=== PATIENT | female | born 1980 | race African-American/Black ===

== ENCOUNTER 2018-01-14 07:45 | Emergency (ER) | payer SELFPAY ==
[~2018-01-14] VITALS: Ht 160 cm; Wt 78.0 kg
--- NOTE | 2018-01-14 08:09 | PHYS DOC ---
Adult General Chief Complaint Chief Complaint: PAIN ON URINATION HPI HPI Patient is a 37 year old female who presents with complaint of dysuria. Patient states her symptoms started approximately 3 days ago. The patient states she started having mild abdominal discomfort and started noticing burning while urinating. Patient states since then she has been taking Azo for her symptoms but states that due to continued discomfort with urination she came to the emergency department as she is concerned she may have urinary tract infection. Patient denies any associated vomiting, flank pain, or fever. Patient states that her abdominal discomfort has resolved. Patient does admit to increased urinary frequency. Review of Systems Review of Systems Constitutional: Denies fever or chills [] Eyes: Denies change in visual acuity, redness, or eye pain [] HENT: Denies nasal congestion or sore throat [] Respiratory: Denies cough or shortness of breath [] Cardiovascular: Denies chest pain or edema[] GI: Abdominal pain currently resolved, denies nausea, vomiting, bloody stools or diarrhea [] : Dysuria, denies vaginal bleeding or abnormal discharge[] Musculoskeletal: Denies back pain or joint pain [] Integument: Denies rash or skin lesions [] Neurologic: Denies headache, focal weakness or sensory changes [] All other systems were reviewed and found to be within normal limits, except as documented in this note. Allergies Allergies No known drug allergies Physical Exam Physical Exam Constitutional: Alert, afebrile, no acute distress. [] HENT: Normocephalic, atraumatic, bilateral external ears normal, oropharynx moist, no oral exudates, nose normal. [] Eyes: PERRLA, EOMI, conjunctiva normal, no discharge. [] Neck: Normal range of motion, no tenderness, supple, no stridor. [] Cardiovascular:Heart rate regular rhythm, no murmur [] Lungs & Thorax: Bilateral breath sounds clear to auscultation [] Abdomen: Bowel sounds normal, soft, no tenderness, no masses, no pulsatile masses. [] Skin: Warm, dry, no erythema, no rash. [] Back: No tenderness, no CVA tenderness. [] Extremities: No tenderness, no cyanosis, no clubbing, ROM intact, no edema. [] Neurologic: Alert and oriented X 3, normal motor function, normal sensory function, no focal deficits noted. [] Current Patient Data Vital Signs Vital Signs Date Time Temp Pulse Resp B/P (MAP) Pulse Ox O2 Delivery O2 Flow Rate FiO2 01/14/18 07:50 98.5 62 18 98 Room Air Lab Results Laboratory Tests Test 01/14/18 08:00 Urine Collection Type Unknown Urine Color Yellow Urine Clarity Turbid Urine pH 6.0 Urine Specific [place] 1.015 Urine Protein 100 mg/dl Urine Glucose (UA) Neg mg/dL Urine Ketones (Stick) Neg mg/dL Urine Blood Mod Urine Nitrite Pos Urine Bilirubin Neg Urine Urobilinogen Dipstick 1 mg/dL Urine Leukocyte Esterase Large Urine RBC 3-5 /HPF Urine WBC >40 /HPF Urine Squamous Epithelial Cells Occ /LPF Urine Bacteria Many /HPF EKG EKG Not performed[] Radiology/Procedures Radiology/Procedures Not performed[] Course & Med Decision Making Course & Med Decision Making Pertinent Labs and Imaging studies reviewed. (See chart for details) The patient's urinalysis was positive for urinary tract infection. Patient started on oral Keflex area patient will continue on seven-day course of treatment. Advised follow-up in 4-5 days with primary doctor for reevaluation if symptoms are not improving and return to emergency department for any worsening symptoms. Patient was understanding and in agreement with treatment plan. Dragon Disclaimer Dragon Disclaimer This electronic medical record was generated, in whole or in part, using a voice recognition dictation system. Departure Departure: Impression: Primary Impression: Urinary tract infection Disposition: 01 HOME, SELF-CARE Condition: IMPROVED Referrals: PCP,NO (PCP) Patient Instructions: Urinary Tract Infection Additional Instructions: Follow-up with your primary doctor in 4-5 days if symptoms are not improving. Return to the emergency department for any worsening symptoms. Scripts Cephalexin (KEFLEX) 500 Mg Capsule 1 CAP PO BID, #14 CAP Prov: LUZ MARINA DURAN MD 01/14/18 Problem Qualifiers Primary Impression: Urinary tract infection Urinary tract infection type: site unspecified Hematuria presence: without hematuria Qualified Codes: N39.0 - Urinary tract infection, site not specified LUZ MARINA DURAN MD Jan 14, 2018 08:09
[2018-01-14 08:39] LABS: CLARITY,URINE TURBID; COLOR,URINE YELLOW
[2018-01-14 08:40] LABS: BACTERIA,URINE MANY /HPF (0-FEW); BILIRUBIN,URINE NEG (NEG); GLUCOSE,URINE NEG (NEG); NITRITE,URINE POS (NEG); SQUAMOUS EPITHELIAL CELL,UR OCC /LPF; UROBILINOGEN,URINE 1 mg/dL (0.2 mg/dL); WBC,URINE >40 /HPF (0-4)
[2018-01-14] MEDS ORDERED: CEPH-264 PO (08:45)
[2018-01-14] MEDS ORDERED: CEPHALEXIN 250 MG CAPSULE PO ONE (09:00)
[2018-01-14 09:12] VITALS: BP 133/90
== END 2018-01-14 09:15 | disposition home or self-care (01) ==
LOC: ER 07:45
DX: N39.0 Urinary tract infection, site not specified (principal)
CPT/HCPCS: 81001; 87086; 87186; 99284

== ENCOUNTER 2019-04-07 18:22 | Observation (INO) | payer OTHER ==
[~2019-04-07] VITALS: Ht 162.6 cm; Wt 85.7 kg
[~2019-04-07 18:22] MED LIST: CEPH-264 PO
[2019-04-07] MEDS ORDERED: ZOLPIDEM 5 MG TABLET. PO PRN (18:45)
[2019-04-07] MEDS ORDERED: ACETAMINOPHEN 500 MG TABLET PO PRN ×2 (18:45)
[2019-04-07] MEDS ORDERED: MORPHINE SULFATE 2 MG/ML DISP.SYRIN. IV PRN (18:45)
[2019-04-07 19:29] LABS: HEMOGLOBIN 8.6 g/dL (12.0-15.5); MEAN CORPUSCULAR HEMOGLOBIN 24 pg (25-35); MEAN CORPUSCULAR HGB CONC 33 g/dL (31-37); MEAN CORPUSCULAR VOLUME 71 fL (79-100); PLATELET COUNT 395 x10^3/uL (140-400); RED BLOOD COUNT 3.64 x10^6/uL (3.50-5.40); RED CELL DISTRIBUTION WIDTH 22.4 % (11.5-14.5); WHITE BLOOD COUNT 15.3 x10^3/uL (4.0-11.0)
[2019-04-07 19:53] LABS: % BANDS 1 % (0-9); % EOS 8 % (0-5); % LYMPHS 44 % (24-48); % MONOS 2 % (0-10); % SEGS 45 % (35-66); HYPOCHROMIA SLIGHT; NUCLEATED RBC 1; PLT ESTIMATE ADEQUATE (ADEQUATE); POLYCHROMASIA SLIGHT
[2019-04-07 19:54] LABS: ANISOCYTOSIS MOD; MICROCYTOSIS MOD; TARGET CELLS MOD
[2019-04-07 20:00] VITALS: BP 123/66
[2019-04-07 20:01] LABS: ALBUMIN 3.3 g/dL (3.4-5.0); ALBUMIN/GLOBULIN RATIO 0.8 (1.0-1.7); CALCIUM 8.6 mg/dL (8.5-10.1); CREATININE 0.8 mg/dL (0.6-1.0); GFR 97.7; POTASSIUM 3.8 mmol/L (3.5-5.1); TOTAL BILIRUBIN 1.2 mg/dL (0.2-1.0); TOTAL PROTEIN 7.5 g/dL (6.4-8.2)
[2019-04-07] MEDS: IV NORMAL SALINE 1,000ML 1,000 ML IV SCH (20:46)
[2019-04-07] MEDS: LACTOBACILLUS RHAMNOSUS GG 1 CAPSULE. PO SCH (21:16)
[2019-04-07] MEDS: ACETAMINOPHEN/CODEINE 300/30MG TABLET PO PRN (22:02)
[2019-04-08 00:20] VITALS: BP 116/76
[2019-04-08] MEDS ORDERED: MECL25TA3 PO ×2 (00:54→01:01)
[2019-04-08] MEDS ORDERED: AMIT25TA PO (00:58)
[2019-04-08] MEDS ORDERED: IBUP800T19 PO (01:04)
[2019-04-08] MEDS ORDERED: TRAM50TA PO (01:04)
[2019-04-08] MEDS ORDERED: ENOXAPARIN 40 MG/0.4 ML SYRINGE. SQ ONE (01:15)
[2019-04-08] MEDS: IV NORMAL SALINE 1,000ML 1,000 ML IV SCH ×3 (04:41→14:46)
[2019-04-08] MEDS: MORPHINE SULFATE 2 MG/ML DISP.SYRIN. IV PRN ×4 (04:49→12:50)
[2019-04-08 05:31] LABS: BILIRUBIN,URINE NEG (NEG); CLARITY,URINE HAZY; COLOR,URINE YELLOW; GLUCOSE,URINE NEG (NEG)
[2019-04-08 05:32] LABS: BACTERIA,URINE FEW /HPF (0-FEW); NITRITE,URINE NEG (NEG); RBC,URINE OCC /HPF (0-2); SQUAMOUS EPITHELIAL CELL,UR FEW /LPF; UROBILINOGEN,URINE 0.2 mg/dL (0.2 mg/dL); WBC,URINE OCC /HPF (0-4)
[2019-04-08 06:02] VITALS: BP 115/71
[2019-04-08 07:17] LABS: CALCIUM 7.9 mg/dL (8.5-10.1); CREATININE 0.7 mg/dL (0.6-1.0); GFR 113.9; POTASSIUM 3.4 mmol/L (3.5-5.1)
[2019-04-08 07:21] LABS: BASO # 0.1 x10^3/uL (0.0-0.2); BASO % 0 % (0-3); EOS # 0.9 x10^3/uL (0.0-0.7); EOS % 6 % (0-3); HEMATOCRIT 26.1 % (36.0-47.0); HEMOGLOBIN 8.8 g/dL (12.0-15.5); LYMPH # 6.3 x10^3/uL (1.0-4.8); LYMPH % 43 % (24-48); MEAN CORPUSCULAR HEMOGLOBIN 24 pg (25-35); MEAN CORPUSCULAR HGB CONC 34 g/dL (31-37); MEAN CORPUSCULAR VOLUME 72 fL (79-100); MONO # 0.6 x10^3/uL (0.0-1.1); MONO % 4 % (0-9); NEUT # 6.8 x10^3uL (1.8-7.7); NEUT % 46 % (31-73); PLATELET COUNT 399 x10^3/uL (140-400); RED BLOOD COUNT 3.65 x10^6/uL (3.50-5.40); RED CELL DISTRIBUTION WIDTH 21.9 % (11.5-14.5); WHITE BLOOD COUNT 14.6 x10^3/uL (4.0-11.0)
[2019-04-08] MEDS ORDERED: FLU VAX QS 2019-20 (36MOS+)/PF 0.5 ML SYRINGE. VAX IM ONE (09:00)
[2019-04-08] MEDS: LACTOBACILLUS RHAMNOSUS GG 1 CAPSULE. PO SCH (09:06)
[2019-04-08] MEDS ORDERED: ELECTROLYTE (NON-ICU) PROTOCOL MC PRN (10:15)
[2019-04-08 10:25] VITALS: BP 122/82
[2019-04-08] MEDS: ACETAMINOPHEN/CODEINE 300/30MG TABLET PO PRN (10:33)
--- NOTE | 2019-04-08 10:42 | RAD ---
PA and lateral chest x-ray HISTORY: Shortness of breath. FINDINGS: Heart size normal. Mediastinal silhouette is normal. No pneumothorax, pulmonary opacities or pleural effusions. 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 IMPRESSION: No acute process. Electronically signed by: Tyson Alonso MD (04/08/2019 10:39 AM) [facility]
[2019-04-08] MEDS ORDERED: IOHEXOL 350 MG/ML 100 ML VIAL. IV ONE (12:00)
[2019-04-08] MEDS ORDERED: CONTRAST GIVEN MC PRN (12:00)
[2019-04-08 16:09] VITALS: BP 125/79
--- NOTE | 2019-04-08 16:56 | RAD ---
Ventilation perfusion exam History:elevated D Dimer Comparison: Chest x-ray same day Findings: Ventilation perfusion examination was performed. Ventilation images were acquired after the patient inhaled 31mci 133XE. Perfusion images were acquired after the patient was injected with 5.5 mCi of technetium 99m MAA. There is mild heterogeneity of radiotracer on ventilation images. No mismatched perfusion defect is identified. Impression: Normal study Electronically signed by: Guerda Jamison MD (04/08/2019 4:54 PM) [place] [id number]
[2019-04-08] MEDS ORDERED: ENOXAPARIN 40 MG/0.4 ML SYRINGE. SQ SCH (21:00)
--- NOTE | 2019-04-09 10:57 | PN ---
DATE: SUBJECTIVE: A 38-year-old female with history of sickle cell, came in with shortness of breath. The patient also has appearance and may have an infection. Her white count was over 14,000. She is anemic, but that is common for her she says. In the office, she had greater than 40 white blood cells per high powered field and the patient was admitted for IV antibiotic therapy and make further evaluation on her as indicated. OBJECTIVE: VITAL SIGNS: The patient's blood pressure 122/82, respiratory rate 20, pulse 70, afebrile. GENERAL: The patient is alert and oriented x 3. Speech was spontaneous, appropriate. Cranial nerves 2-12 grossly intact. The patient continued to be monitored carefully, make further evaluation. LUNGS: Diminished. CARDIOVASCULAR: Regular sinus rhythm. NEUROLOGIC: Alert and oriented. The patient is feeling somewhat better. PLAN: Continue with IV antibiotic therapy and have cultures obtained from the office and then have the CTA of her chest and she has had a positive D-dimer and she needs a CTA performed. IMPRESSION: Possible systemic inflammatory response syndrome, urinary tract infection, sickle cell anemia. PLAN: As above. MAN LANDRY MD DR: ANTHONY/cassie JOB#: [id number] / [id number]
--- NOTE | 2019-04-09 20:00 | DS ---
DATE OF DISCHARGE: 04/08/2019 HOSPITAL COURSE: A 38-year-old female in with possible ulcers. She has a history of sickle cell. She has elevated white count. She had a positive D-dimer. Her V/Q scan was unremarkable as well as her chest x-ray. The patient as an outpatient, did have a urinary tract infection and because she had this elevated white count 15,000, the patient was admitted to the hospital and placed on antibiotics and then later on discharged. The patient was discharged home. She has chronic anemia secondary to her sickle cell, hemoglobin 8.8 and 26, white count 14.6, potassium slightly low at 3.4, albumin low at 3.3. IMPRESSION: Systemic inflammatory response syndrome, urinary tract infections, sickle cell anemia, moderate protein malnutrition. MAN LANDRY MD DR: ANTHONY/cassie JOB#: [id number] / [id number]
--- NOTE | 2019-04-11 03:54 | EKG ---
[address] [address] Test Date: 2019-04-08 Test Time: 06:38:21 Pat Name: ALICJA PERRIN Department: Room: 113 A Gender: F Operations And Maintenance Technician: ALFONZO : 1980 Requested By: MAN LANDRY Order Number: [id number] Reading MD: Measurements Intervals [place] Rate: 76 P: TN: QRS: 160 QRSD: 84 T: 204 QT: 420 QTc: 477 Interpretive Statements IRREGULAR RHYTHM, NO P-WAVE FOUND VENTRICULAR PREMATURE COMPLEX(ES) ABNORMAL RIGHT AXIS DEVIATION T ABNORMALITY IN ANTERIOR LEADS LATERAL LEADS INFEROLATERAL LEADS PROLONGED QT ABNORMAL ECG RI6.02 No previous ECG available for comparison
== END 2019-04-08 18:00 | disposition home or self-care (01) ==
LOC: 1 SOUTH 18:22 → INTOOBSV 18:22
PROVIDERS: ADMIT Family Medicine; ATTEND Family Medicine
DX: D57.1 Sickle-cell disease without crisis (principal); N39.0 Urinary tract infection, site not specified; D72.89 Other specified disorders of white blood cells; R65.10 Systemic inflammatory response syndrome (SIRS) of non-infectious origin without acute organ dysfunction; E44.0 Moderate protein-calorie malnutrition; M79.661 Pain in right lower leg; M79.662 Pain in left lower leg; D64.9 Anemia, unspecified; Z23 Encounter for immunization; Z79.899 Other long term (current) drug therapy
CPT/HCPCS: 36415; 71046; 78582; 80048; 80053; 81001; 83605; 84702; 85007; 85025; 85045; 85379; 87040; 90471; 90686; 93005; 96365; 96368; 96372; 96375; 96376; A9540; A9558; G0378; G0379; J0696; J1650; J1956; J2270; 96374; J7030